=== PATIENT | male | born 1995 | race Hispanic/Latino ===

== ENCOUNTER 2018-04-20 20:15 | Emergency (ER) | payer OTHER ==
[2018-04-20] MEDS ORDERED: MOTRIN ONE (21:24)
[2018-04-20] MEDS ORDERED: MOTRIN PO ONE (21:25)
[2018-04-20 21:55] LABS: Mean Corpuscular HGB Conc 36 % (32-34); Mean Corpuscular Volume 86 fl (84-94); Platelet Count 466 K/mm3 (140-440); Red Blood Count 5.14 M/mm3 (3.65-5.03); Red Cell Distribution Width 12.6 % (13.2-15.2)
[2018-04-20 22:07] LABS: BUN/Creatinine Ratio 17; Blood Urea Nitrogen 10 mg/dL (9-20); Calcium 10.4 mg/dL (8.4-10.2); Hemolysis Index 0
--- NOTE | 2018-04-20 23:46 | XRay Report ---
FINAL REPORT PROCEDURE: XR CHEST ROUTINE 2V TECHNIQUE: PA and lateral chest radiographs were obtained. CPT 84050 HISTORY: Chest and throat pain COMPARISON: No prior studies are available for comparison. FINDINGS: Heart: Normal. Mediastinum/Vessels: Normal. Lungs/Pleural space: Normal. Bony thorax: No acute osseous abnormality. Other: IMPRESSION: Normal examination.
[2018-04-21] MEDS ORDERED: ZOFRAN IV ONE (01:43)
[2018-04-21] MEDS ORDERED: MORPHINE IV ONE (01:43)
[2018-04-21] MEDS ORDERED: CLEOCIN 900 MG/50 mL 900 MG/50 ML BAG IV ONE (01:43)
[2018-04-21] MEDS ORDERED: NACL 0.9% 1000 ML 1,000 ML IV ONE (01:44)
[2018-04-21] MEDS ORDERED: HumuLIN R IV ONE ×3 (01:44→03:29)
--- NOTE | 2018-04-21 01:49 | Emergency Department Report ---
ED General Adult HPI - General Chief complaint: Chest Pain Stated complaint: THROAT PAIN Time Seen by Provider: 04/21/18 01:36 Source: patient Mode of arrival: Ambulatory Limitations: No Limitations - History of Present Illness Initial comments: Patient is 23 years old male with history of asthma and borderline diabetes. Patient presented to the ER complaining of fever, painful swallowing and throat pain for the last 3 days. Patient is also complaining of crampy abdominal pain associated with nausea and watery diarrhea. Patient denied any chest pain or shortness of breath. Severity scale (0 -10): 8 - Related Data Previous Rx's Medication Instructions Recorded Last Taken Type Acetaminophen/Codeine [Tylenol #3] 1 tab PO BID PRN #14 tab 08/21/14 Unknown Rx methOCARBAMOL [Robaxin] 500 mg PO BID #14 tab 08/21/14 Unknown Rx Allergies Allergy/AdvReac Type Severity Reaction Status Date / Time No Known Allergies Allergy Unverified 08/21/14 09:55 ED Review of Systems ROS: Stated complaint: THROAT PAIN Other details as noted in HPI Comment: All other systems reviewed and negative Constitutional: chills, fever Cardiovascular: denies: chest pain, palpitations, dyspnea on exertion Gastrointestinal: abdominal pain, nausea, vomiting, diarrhea. denies: constipation, hematemesis, melena, hematochezia Musculoskeletal: denies: back pain Neurological: denies: headache, weakness, numbness, paresthesias, confusion ED Past Medical Hx - Past Medical History Previous Medical History?: Yes Hx Asthma: Yes Additional medical history: Upper Respitatory infection x 2 months ago - Surgical History Past Surgical History?: No - Social History Smoking Status: Never Smoker - Medications Home Medications: Home Medications Medication Instructions Recorded Confirmed Last Taken Type Acetaminophen/Codeine [Tylenol #3] 1 tab PO BID PRN #14 tab 08/21/14 Unknown Rx methOCARBAMOL [Robaxin] 500 mg PO BID #14 tab 08/21/14 Unknown Rx ED Physical Exam - General Limitations: No Limitations General appearance: alert, in no apparent distress - Head Head exam: Present: atraumatic, normocephalic, normal inspection - Eye Eye exam: Present: normal appearance, PERRL - ENT ENT exam: Present: mucous membranes moist, other (pharyngeal erythema with tonsillar exudate.) - Neck Neck exam: Present: normal inspection, full ROM. Absent: tenderness, meningismus, lymphadenopathy, thyromegaly - Respiratory Respiratory exam: Present: normal lung sounds bilaterally. Absent: respiratory distress, wheezes, rales, rhonchi, chest wall tenderness, accessory muscle use, decreased breath sounds, prolonged expiratory - Cardiovascular Cardiovascular Exam: Present: regular rate, normal rhythm, normal heart sounds - GI/Abdominal GI/Abdominal exam: Present: soft, normal bowel sounds. Absent: distended, tenderness, guarding, rebound, rigid, organomegaly, mass, bruit, pulsatile mass, hernia - Extremities Exam Extremities exam: Present: normal inspection, full ROM, normal capillary refill. Absent: tenderness, pedal edema, calf tenderness - Back Exam Back exam: Present: normal inspection, full ROM. Absent: CVA tenderness (R), CVA tenderness (L), muscle spasm, paraspinal tenderness, vertebral tenderness - Neurological Exam Neurological exam: Present: alert, oriented X3, CN II-XII intact, normal gait - Psychiatric Psychiatric exam: Present: normal mood - Skin Skin exam: Present: warm, intact, normal color ED Course Vital Signs 04/20/18 04/20/18 04/21/18 21:11 21:33 00:53 Temperature 100.0 F H 98.3 F Pulse Rate 118 H 122 H Respiratory 20 20 Rate Blood Pressure 113/73 Blood Pressure 121/77 [Right] O2 Sat by Pulse 95 94 Oximetry 04/21/18 04/21/18 04/21/18 02:10 02:40 02:47 Temperature 98.4 F Pulse Rate 98 H Respiratory 18 18 18 Rate Blood Pressure Blood Pressure 114/73 [Right] O2 Sat by Pulse 98 Oximetry ED Medical Decision Making - Lab Data Result diagrams: 04/20/18 21:32 04/20/18 21:32 - Radiology Data Radiology results: report reviewed Referring Physician: GINNA BAH Patient Name: KIRK MONIQUE Date of : 1995 Sex: Male Report Date: 2018-04-21 Report Status: Finalized Findings [facility] [address] [place] [address] Cat Scan Report Signed Patient: KIRK MONIQUE MR#: [id number] : 1995 Acct:[id number] Age/Sex: 23 / M ADM Date: 04/20/18 Loc: ED Attending Dr: Ordering Physician: GINNA BAH Date of Service: 04/21/18 Procedure(s): CT neck w con Accession Number(s): [id number] cc: GINNA BAH FINAL REPORT PROCEDURE: CT NECK W CON TECHNIQUE: Computerized axial tomography of the soft tissue neck was performed following the IV injection of iodinated nonionic contrast. HISTORY: difficulty swallowing, throat pain, tonsillar enla COMPARISON: No prior studies are available for comparison. FINDINGS: Skull and scalp: Normal. Paranasal sinuses: Normal. Nasopharynx: Normal . Oral cavity: Normal . Epiglottis/vallecula: Normal . Larynx/pyriform sinuses: Normal . Thyroid gland: Normal . Lymph nodes: None enlarged . Salivary glands: Normal . Upper thorax: Normal . IMPRESSION: Normal Examination Transcribed By: [facility] Dictated By: LISY KIMBLE MD Electronically Authenticated By: LISY KIMBLE MD Signed Date/Time: 04/21/18240 DD/ 0 TD/TT: 04/21/18240 - Medical Decision Making Patient is 23 years old male with history of asthma and borderline diabetes. Patient presented to the ER complaining of fever, painful swallowing and throat pain for the last 3 days. Patient is also complaining of crampy abdominal pain associated with nausea and watery diarrhea. Patient denied any chest pain or shortness of breath. Patient stated that he is feeling much better. CT neck with IV contrast did not show anything acute. Patient received clindamycin IV. Strep test is negative. Patient will be discharged with clindamycin and I will start patient on metformin and advised him to follow up with his primary care physician in the next 2-3 days. Patient also advised to return to the ER if his symptoms have not improved. Critical care attestation.: If time is entered above; I have spent that time in minutes in the direct care of this critically ill patient, excluding procedure time. ED Disposition Clinical Impression: Difficulty swallowing, Fever, Hyperglycemia Disposition: -01 TO HOME OR SELFCARE Is pt being admited?: No Condition: Stable Instructions: Tonsillitis (ED), Diabetic Hyperglycemia (ED) Referrals: YANI MCGILL MD [Primary Care Provider] - 3-5 Days
--- NOTE | 2018-04-21 02:41 | Cat Scan Report ---
FINAL REPORT PROCEDURE: CT NECK W CON TECHNIQUE: Computerized axial tomography of the soft tissue neck was performed following the IV inje ction of iodinated nonionic contrast. HISTORY: difficulty swallowing, throat pain, tonsillar enla COMPARISON: No prior studies are available for comparison. FINDINGS: Skull and scalp: Normal. Paranasal sinuses: Normal. Nasopharynx: Normal . Oral cavity: Normal . Epiglottis/vallecula: Normal . Larynx/pyriform sinuses: Normal . Thyroid gland: Normal . Lymph nodes: None enlarged . Salivary glands: Normal . Upper thorax: Normal . IMPRESSION: Normal Examination
[2018-04-21 04:12] VITALS: BP 123/74
== END 2018-04-21 04:19 | disposition home or self-care (01) ==
LOC: ED 20:15
DX: R73.9 Hyperglycemia, unspecified (principal); J45.909 Unspecified asthma, uncomplicated; R13.10 Dysphagia, unspecified; R50.9 Fever, unspecified; Z79.899 Other long term (current) drug therapy
CPT/HCPCS: 36415; 70491; 71046; 80048; 82962; 85027; 85379; 87040; 87116; 87430; 93005; 93010; 96361; 96365; 96375; 96376; 99284; J2270; J2405; J7030; Q9967; J1815